=== PATIENT | female | born 1995 | race African-American/Black ===

== ENCOUNTER 2017-08-16 09:42 | Emergency (ER) | payer SELFPAY ==
[~2017-08-16] VITALS: Ht 157.5 cm; Wt 86.4 kg
[2017-08-16 10:00] VITALS: BP 142/63; PULSE 70; TEMP 98.8
== END 2017-08-16 10:21 | disposition home or self-care (01) ==
LOC: COL.ER 09:42
DX: M76.822 Posterior tibial tendinitis, left leg (principal); X58.XXXA Exposure to other specified factors, initial encounter